=== PATIENT | female | born 1970 | race Caucasian/White ===

== ENCOUNTER → 2021-10-18 | Outpatient (CLI) | payer OTHER ==
[~2021-10-18] MED LIST: ACET500; AMOX250; Amoxicillin125 MG; OMEP20ER PO; PARO20 PO; VITAMIN D35000 UNIT PO
[2021-10-18 14:38] LABS: BASOPHILS ABSOLUTE AUTO 0.05 K/mm3 (0.00-0.23); BASOPHILS PERCENT AUTO 1 % (0-2); EOSINOPHILS ABSOLUTE AUTO 0.04 K/mm3 (0.00-0.68); EOSINOPHILS PERCENT AUTO 0 % (0-6); Hematocrit 33.4 % (33.0-51.0); Hemoglobin 11.8 g/dL (11.5-16.0); IMMATURE GRAN ABSOLUTE AUTO 0.06 K/mm3 (0.00-0.10); IMMATURE GRAN PERCENT AUTO 1 % (0-1); LYMPHOCYTES ABSOLUTE AUTO 0.96 K/mm3 (0.84-5.20); LYMPHOCYTES PERCENT AUTO 9 % (21-46); MONOCYTES ABSOLUTE AUTO 0.89 K/mm3 (0.16-1.47); MONOCYTES PERCENT AUTO 8 % (4-13); Mean Corpuscular HGB 36.5 pg (26.0-34.0); Mean Corpuscular HGB Conc 35.3 g/dL (31.5-36.5); Mean Corpuscular Volume 103 fL (80-100); Mean Platelet Volume 11.5 fL (9.1-12.4); NEUTROPHILS ABSOLUTE AUTO 8.78 K/mm3 (1.96-9.15); NEUTROPHILS PERCENT AUTO 81 % (41-73); Platelet Count 74 K/mm3 (150-400); RDW Coefficient Variation 14.6 % (11.7-14.2); RDW Standard Deviation 55.8 fL (35.1-46.3); Red Blood Cell Count 3.23 M/mm3 (3.80-5.20); White Blood Cell Count 10.78 K/mm3 (4.00-11.30)
[2021-10-18 15:05] LABS: Alanine Aminotransfer (ALT/SGP 23 U/L (12-78); Albumin, Blood 2.6 g/dL (3.4-5.0); Albumin/Globulin Ratio 0.6 (0.8-1.8); Alk Phos 229 U/L (50-136); Anion Gap 12 mmol/L (6-16); Aspartate Aminotrans (AST/SGOT 94 U/L (12-37); Bilirubin, Total 6.8 mg/dL (0.1-1.0); Blood Urea Nitrogen 4 mg/dL (8-24); Bun/Creatinine Ratio 7.4 (12.0-20.0); CO2, Blood 23 mmol/L (21-32); Calcium, Blood 8.6 mg/dL (8.5-10.1); Chloride, Blood 98 mmol/L (98-108); Creatinine, Blood 0.54 mg/dL (0.40-1.00); Globulin, Blood 4.3 g/dL (2.2-4.0); Glomerular Filtration Rate >60 (60-); Glucose, Blood 119 mg/dL (70-99); Potassium, Blood 3.4 mmol/L (3.5-5.5); Sodium, Blood 133 mmol/L (136-145); Total Protein, Blood 6.9 g/dL (6.4-8.2)
== END | disposition home or self-care (01) ==
LOC: LAB SHORT 14:28
PROVIDERS: Chiropractor
DX: N39.0 Urinary tract infection, site not specified (principal); E86.0 Dehydration
CPT/HCPCS: 80053; 85025

== ENCOUNTER 2022-01-30 07:48 | Day surgery (SDC) | payer OTHER ==
[~2022-01-30] VITALS: Ht 165.1 cm; Wt 53.7 kg
[~2022-01-30 07:48] MED LIST changes: +B-1100 M1 PO; +CEFDINIR300 M4 PO; +FOLI1 PO; +LACT10SY PO; +MEGE40T PO; +NEURONTIN300 MG PO; +SYNTHROID50 MC1 PO
[2022-01-30] MEDS ORDERED: Prozac20 MG (08:26)
[2022-01-30] MEDS ORDERED: FURO40 (08:27)
[2022-01-30] MEDS ORDERED: HYDHCL25 (08:27)
--- NOTE | 2022-01-30 08:53 | NUR ---
01/30/22 0853 Grace Parrish PT. WAS CANCELLED DUE TO POSITIVE COVID TEST.
== END 2022-01-30 08:39 | disposition home or self-care (01) ==
LOC: ORSCSDS 07:48
DX: K70.31 Alcoholic cirrhosis of liver with ascites (principal); Z53.9 Procedure and treatment not carried out, unspecified reason
CPT/HCPCS: J7120

== ENCOUNTER 2022-02-23 11:14 | Day surgery (SDC) | payer OTHER ==
[~2022-02-23] VITALS: Ht 162.6 cm; Wt 48.8 kg
[~2022-02-23 11:14] MED LIST changes: +FURO40; +HYDHCL25; +Prozac20 MG
[2022-02-23] MEDS ORDERED: CEFD300 (12:01)
[2022-02-23] MEDS ORDERED: N-ACETYL-L-CYS600 M1 (12:02)
[2022-02-23] MEDS ORDERED: THERA-D2000 UNIT (12:02)
[2022-02-23] MEDS ORDERED: FAMO20 (12:03)
[2022-02-23] MEDS ORDERED: MULVITB (12:03)
[2022-02-23] MEDS ORDERED: LACT10SY (12:03)
[2022-02-23] MEDS ORDERED: Vitamin B-150 MG (12:04)
[2022-02-23] MEDS ORDERED: POTCHL20ER (12:04)
[2022-02-23] MEDS ORDERED: PROG100 (12:04)
[2022-02-23] MEDS ORDERED: SPIR50 (12:04)
== END 2022-02-23 13:05 | disposition home or self-care (01) ==
LOC: ORSCSDS 11:14
PROVIDERS: Student in an Organized Health Care Education/Training Program
PROC: 0DB68ZX Excision of Stomach, Via Natural or Artificial Opening Endoscopic, Diagnostic (ICD-10-PCS; principal; 2022-02-23 12:45)
DX: K70.31 Alcoholic cirrhosis of liver with ascites (principal); I85.00 Esophageal varices without bleeding; K76.6 Portal hypertension; F43.10 Post-traumatic stress disorder, unspecified; F41.9 Anxiety disorder, unspecified; F32.A Depression, unspecified; K31.89 Other diseases of stomach and duodenum; Z79.899 Other long term (current) drug therapy
CPT/HCPCS: 88305; 88342; J2704; J7120

== ENCOUNTER → 2022-08-23 | Outpatient (CLI) | payer OTHER ==
[~2022-08-23] MED LIST changes: +CEFD300; +FAMO20; +LACT10SY; +MULVITB; +N-ACETYL-L-CYS600 M1; +POTCHL20ER; +PROG100; +SPIR50; +THERA-D2000 UNIT; +Vitamin B-150 MG
[2022-08-23 16:15] LABS: Source, Urine Clean Catch
[2022-08-23 18:24] LABS: Appearance, Urine Hazy (Clear); Blood, Urine 4+ (Neg); Color, Urine Amber (P-Yellow); Glucose Qualitative, Urine Neg (Neg); Ketones, Urine 1+ (Neg); Leukocyte Esterase, Urine 3+ (Neg); Nitrite, Urine Pos (Neg); Protein, Urine 3+ (Neg); Urobilinogen, Urine 1+ (Normal)
[2022-08-23 18:31] LABS: Bilirubin, Urine 1+ (Neg)
[2022-08-23 18:34] LABS: Bacteria Many /hpf; Hyaline Casts 0-2 /lpf (0-2); Squamous Epithelial Cells Mod /hpf (Few); WBC Cast 0-2 /lpf (0); White Blood Cells, Urine 50-100 /hpf (0-5)
== END | disposition home or self-care (01) ==
LOC: LAB SHORT 16:12 → LAB 16:12
PROVIDERS: Obstetrics & Gynecology
DX: Z01.419 Encounter for gynecological examination (general) (routine) without abnormal findings (principal); R30.0 Dysuria
CPT/HCPCS: 81001; 87077; 87086; 87186

== ENCOUNTER → 2023-08-16 | Outpatient (CLI) | payer OTHER | LOC: LAB SHORT 14:56 → LAB 14:56 | DX: I10 Essential (primary) hypertension (principal) | CPT/HCPCS: 88305 ==

== ENCOUNTER → 2024-05-20 | Outpatient (CLI) | payer OTHER ==
[2024-06-02 10:07] LABS: HPV HIGH RISK BY TMA Not Detected; HPV SOURCE Cervical
== END ==
LOC: LAB SHORT 16:07 → LAB 16:07
PROVIDERS: Obstetrics & Gynecology
DX: Z01.419 Encounter for gynecological examination (general) (routine) without abnormal findings (principal)
CPT/HCPCS: 87624; G0123